=== PATIENT | female | born 1965 | race Caucasian/White ===

== ENCOUNTER → 2019-06-14 10:32 | Outpatient (CLI) | payer MEDICAID, SELFPAY ==
[2019-05-29 10:48] VITALS: BMI 30.7
--- NOTE | 2019-06-14 10:42 | RAD_ITS ---
STUDY: X-RAY - LEFT SHOULDER REASON FOR EXAM: Female, 54 years old. Pain and stiffness TECHNIQUE: 4 view(s) of the shoulder. COMPARISON: None. FINDINGS: Normal glenohumeral articulation. Normal acromioclavicular joint. Normal acromion. Normal humeral head and visualized proximal humerus. The soft tissue structures are unremarkable. Normal visualized pulmonary apex. RAD/Shoulder min 2 Views IMPRESSION: Normal x-ray examination of the shoulder. Electronically Signed: Jaime Kirby MD at 11:49 EDT , Service support ,
--- NOTE | 2019-06-14 10:43 | RAD_ITS ---
STUDY: X-RAY - LUMBAR SPINE REASON FOR EXAM: Female, 54 years old. Pain TECHNIQUE: 5 view(s) of the lumbar spine were obtained. COMPARISON: None FINDINGS: Normal lumbar lordosis. There is a mild levoscoliosis of the lumbar spine. There is a normal alignment of the vertebrae. Normal vertebral bodies and endplates. Normal disc space heights. The soft tissue structures are unremarkable. RAD/L/S Spine Min 4 Views IMPRESSION: No acute findings, mild levoscoliosis Electronically Signed: Jaime Kirby MD at 11:39 EDT , Service support ,
--- NOTE | 2019-06-14 10:43 | RAD_ITS ---
STUDY: X-RAY - CERVICAL SPINE REASON FOR EXAM: Female, 54 years old. Neck pain and headache TECHNIQUE: 5 view(s) of the cervical spine were obtained. COMPARISON: None FINDINGS: Normal anterior atlantoaxial articulation. Normal odontoid process. Normal cervical lordosis. Normal vertebral bodies and endplates. There is multi-level degenerative disc disease with multilevel disc space narrowing. There is multi-level osseous foraminal stenosis. The soft tissue structures are unremarkable. RAD/Cerv Spine 4 or 5 Views IMPRESSION: Multilevel degenerative changes, no acute findings Electronically Signed: Jaime Kirby MD at 11:39 EDT , Service support ,
--- NOTE | 2019-06-14 10:43 | RAD_ITS ---
STUDY: X-RAY - THORACIC SPINE REASON FOR EXAM: Female, 54 years old. Mid back pain TECHNIQUE: 4 view(s) of the thoracic spine were obtained. COMPARISON: None. FINDINGS: Normal kyphosis of the thoracic spine. There is no substantial scoliosis. Normal thoracic vertebrae and endplates. Mild disc space narrowing. The soft tissue structures are unremarkable. RAD/Thoracic Spine 3 Views IMPRESSION: Mild degenerative changes, no acute findings Electronically Signed: Jaime Kirby MD at 11:49 EDT , Service support ,
--- NOTE | 2019-06-14 10:50 | RAD_ITS ---
STUDY: X-RAY - RIGHT SHOULDER REASON FOR EXAM: Female, 54 years old. Pain, stiffness TECHNIQUE: 4 view(s) of the shoulder. COMPARISON: None. FINDINGS: Normal glenohumeral articulation. Normal acromioclavicular joint. Normal acromion. Normal humeral head and visualized proximal humerus. Soft tissue calcifications noted posterior to the proximal humerus, likely sequela from previous trauma Normal visualized pulmonary apex. RAD/Shoulder min 2 Views IMPRESSION: Normal x-ray examination of the shoulder. Electronically Signed: Jaime Kirby MD at 11:51 EDT , Service support ,
== END ==
PROVIDERS: Family Provider Internal Medicine; PCP Internal Medicine; Referring Provider Anesthesiology; Visit Provider Anesthesiology
DX: M54.2 Cervicalgia (principal); M54.5 Low back pain; M25.511 Pain in right shoulder; M25.512 Pain in left shoulder
CPT/HCPCS: 72050; 72072; 72110; 73030

== ENCOUNTER → 2019-06-28 13:50 | Outpatient (CLI) | payer MEDICAID, SELFPAY ==
[2019-05-29 10:48] VITALS: BMI 30.7
--- NOTE | 2019-06-28 13:51 | CT_ITS ---
STUDY: LOW DOSE CT LUNG CANCER SCREENING REASON FOR EXAM: Female, 54 years old. Lung cancer screening, smokes 1 1/2 pack per day x30 years RADIATION DOSAGE (If Supplied By Facility): CTDIvol = ( 3.02 ) mGy, DLP = ( 101.18 ) mGycm TECHNIQUE: No contrast was administered. Low dose technique was utilized (average mAS-38 and kVp 120). 1.25 mm axial source images with a slice interval of 1.25-mm were reconstructed in lung windows. 2.5 mm axial source images with a slice interval of 2.5-mm were reconstructed in lung windows. 5.0 mm axial source images with a slice interval of 5.0-mm were reconstructed in soft tissue windows. Nodule measured using lung windows on PACS and/or independent workstation with automated measurement of minimum and maximum diameter. Nodule measurement reported as average diameter rounded to the nearest whole number. Growth is defined as an increase ins size of greater than 1.5 mm. COMPARISON: None. NODULES: Total lung nodules (excluding granulomas): 0 Emphysema: Not present Endobronchial lesion: None Aorta: Normal Coronary arteries: Unremarkable Heart: Normal size Pulmonary artery: Unremarkable Mediastinal nodes: No suspicious lymph nodes Other chest and abdominal findings: Scattered patchy opacifications in the right middle lobe suggests pneumonitis CT/Low Dose CT Lung Screening IMPRESSION: Lung-RADS category 2 - Continue annual screening with LDCT in 12 months. IMPORTANT NOTES FOR USE: ACR Lung-RADS Version 1.0 Assessment Categories Release Date: March 18, 2014 Category: Coded 0-4 bases on nodule(s) with highest degree of suspicion. Negative screen is defined as categories 1 and 2; a positive screen is defined as categories 3 and 4. Category 3 and 4A nodules that are unchanged on interval CT should be coded as category 2, and individuals returned to screening in 12 months. Category 4X: Category 3 or 4 nodules with additional imaging findings that increase the suspicion of lung cancer, such as spiculation, GGN that doubles in size in 1 year, enlarged lymph notes, etc. Category Modifiers: S (significant finding unrelated to lung cancer) and C (prior history of treated lung cancer) may be added to the 0-4 Lung-RADS Electronically Signed: Jaime Kirby MD at 14:15 EDT , Service support ,
== END ==
PROVIDERS: Family Provider Internal Medicine; PCP Internal Medicine; Referring Provider Internal Medicine; Visit Provider Internal Medicine
DX: F17.210 Nicotine dependence, cigarettes, uncomplicated (principal)
CPT/HCPCS: G0297

== ENCOUNTER → 2019-08-31 11:13 | Outpatient (CLI) | payer MEDICAID, SELFPAY ==
[2019-08-31 10:36] VITALS: BMI 31.6
[2019-08-31 12:42] LABS: Absolute Lymphocyte Count 2.34 X10^3/uL (0.83-4.51); Absolute Neutrophil Count 6.4 X10^3/uL (2.0-7.7); Basophil# 0.05 X10^3/uL; Basophil% 0.5 % (0-1); Eosinophil# 0.05 X10^3/uL; Eosinophils% 0.5 % (0-5); Hematocrit 44.2 % (37-47); Hemoglobin 14.1 g/dL (12.0-15.0); Lymphocyte # 2.34 X10^3/ul (4.0); Lymphocyte % 24.6 % (19-41); Mean Corp Hgb Conc 31.9 g/dL (32-36); Mean Corpuscular Hgb 29.9 pg (27.0-32.0); Mean Corpuscular Volume 93.8 fL (81-99); Mean Platelet Vol. 10.9 fl (6.2-12.0); Monocyte# 0.64 X10^3/uL; Monocyte% 6.7 % (0-10); NRBC Flagged by Analyzer 0 % (0-5); Neutrophil # 6.41 X10^3/uL (2.7-7.7); Neutrophil % 67.4 % (47-70); Platelet Count 184 K/mm3 (150-450); RBC Distribution Width CV 12.9 % (11.6-14.6); RBC Distribution Width SD 44.1 fl (35.1-43.9); Red Blood Count 4.71 M/mm3 (4.2-5.4); White Blood Count 9.5 K/mm3 (4.4-11.0)
[2019-08-31 13:06] LABS: ALB/GLOB Ratio 1.1 RATIO (0.9-2.4); AST(SGOT) 15 U/L (15-37); Alanine Aminotransfer ALT/SGPT 34 U/L (13-56); Albumin, Serum 3.9 g/dL (3.2-5.0); Alkaline Phosphatase 91 U/L (45-117); Anion Gap 7 (5-15); BUN 20 mg/dL (7-18); BUN/Creat Ratio 27.2 RATIO (10-20); Calcium,Total 9.2 mg/dL (8.5-10.1); Chloride 109 mmol/L (98-107); Cholesterol 155 mg/dL (200); Creatinine, Serum 0.74 mg/dL (0.55-1.02); EST Glomerular Filtration Rate 87 mL/min (>60); Est Glom Filt Rate - Afr Amer 105 mL/min (>60); Globulin 3.4 g/dL (2.2-4.2); Glucose 90 mg/dL (74-106); High Density Lipoprotein 53 mg/dL; Potassium 4.2 mmol/L (3.5-5.1); Protein, Total 7.3 g/dL (6.4-8.2); Sodium Level 142 mmol/L (136-145); Triglycerides 124 mg/dL; Very Low Density Lipoprotein 25 mg/dL (5-40)
== END ==
PROVIDERS: Family Provider Internal Medicine; PCP Internal Medicine; Visit Provider Internal Medicine
DX: E78.5 Hyperlipidemia, unspecified (principal); F32.9 Major depressive disorder, single episode, unspecified
CPT/HCPCS: 36415; 80053; 80061; 85025

== ENCOUNTER → 2020-01-17 13:47 | Outpatient (CLI) | payer MEDICAID, SELFPAY ==
[2020-01-17 13:35] VITALS: BMI 31.6
[2020-01-17 15:03] LABS: T4 Free Direct 0.84 ng/dL (0.76-1.46); Thyroid Stim Hormone (TSH) 0.01 uIU/mL (0.358-3.74)
[2020-01-23 16:36] LABS: HPV APTIMA, High Risk Negative (Negative)
== END ==
PROVIDERS: PCP Internal Medicine; Referring Provider Internal Medicine; Visit Provider Internal Medicine
DX: Z12.4 Encounter for screening for malignant neoplasm of cervix (principal); Z13.29 Encounter for screening for other suspected endocrine disorder
CPT/HCPCS: 36415; 84439; 84443; 87624; 88175; G0145

== ENCOUNTER → 2020-05-06 13:16 | Outpatient (CLI) | payer MEDICAID, SELFPAY ==
[2020-05-06 12:55] VITALS: BMI 30.7
[2020-05-06 15:21] LABS: ALB/GLOB Ratio 1.1 RATIO (0.9-2.4); AST(SGOT) 17 U/L (15-37); Alanine Aminotransfer ALT/SGPT 28 U/L (13-56); Albumin, Serum 3.8 g/dL (3.2-5.0); Alkaline Phosphatase 89 U/L (45-117); Anion Gap 6 (5-15); BUN 16 mg/dL (7-18); BUN/Creat Ratio 21.1 RATIO (10-20); Chloride 105 mmol/L (98-107); Creatinine, Serum 0.76 mg/dL (0.55-1.02); EST Glomerular Filtration Rate 84 mL/min (>60); Est Glom Filt Rate - Afr Amer 101 mL/min (>60); Globulin 3.5 g/dL (2.2-4.2); Glucose 92 mg/dL (74-106); Potassium 4.2 mmol/L (3.5-5.1); Protein, Total 7.3 g/dL (6.4-8.2); Sodium Level 142 mmol/L (136-145); T4 Free Direct 0.75 ng/dL (0.76-1.46); Thyroid Stim Hormone (TSH) 0.06 uIU/mL (0.358-3.74)
[2020-05-13 15:55] LABS: T3 Reverse 11.5 ng/dL (9.2-24.1)
== END ==
PROVIDERS: PCP Internal Medicine; Referring Provider Internal Medicine; Visit Provider Internal Medicine
DX: I10 Essential (primary) hypertension (principal); E05.90 Thyrotoxicosis, unspecified without thyrotoxic crisis or storm
CPT/HCPCS: 36415; 80053; 84439; 84443; 84482

== ENCOUNTER → 2020-07-03 15:02 | Outpatient (CLI) | payer MEDICAID, SELFPAY ==
[2020-07-03 14:44] VITALS: BMI 30.9
[2020-07-03 17:10] LABS: ALB/GLOB Ratio 1.2 RATIO (0.9-2.4); AST(SGOT) 15 U/L (15-37); Alanine Aminotransfer ALT/SGPT 32 U/L (13-56); Albumin, Serum 4.1 g/dL (3.2-5.0); Alkaline Phosphatase 95 U/L (45-117); Anion Gap 6 (5-15); BUN 17 mg/dL (7-18); BUN/Creat Ratio 21.6 RATIO (10-20); Calcium,Total 9.3 mg/dL (8.5-10.1); Chloride 107 mmol/L (98-107); Cholesterol 197 mg/dL (200); Creatinine, Serum 0.79 mg/dL (0.55-1.02); EST Glomerular Filtration Rate 80 mL/min (>60); Est Glom Filt Rate - Afr Amer 97 mL/min (>60); Globulin 3.3 g/dL (2.2-4.2); Glucose 104 mg/dL (74-106); High Density Lipoprotein 53 mg/dL; Potassium 4.1 mmol/L (3.5-5.1); Protein, Total 7.4 g/dL (6.4-8.2); Sodium Level 142 mmol/L (136-145); Triglycerides 163 mg/dL; Very Low Density Lipoprotein 33 mg/dL (5-40)
[2020-07-03 17:14] LABS: Free T3 3.3 pg/mL (2.18-3.98); T4 Free Direct 0.92 ng/dL (0.76-1.46); Thyroid Stim Hormone (TSH) 0.11 uIU/mL (0.358-3.74)
== END ==
PROVIDERS: PCP Internal Medicine; Referring Provider Internal Medicine Endocrinology, Diabetes & Metabolism; Visit Provider Internal Medicine Endocrinology, Diabetes & Metabolism
DX: E05.90 Thyrotoxicosis, unspecified without thyrotoxic crisis or storm (principal); I10 Essential (primary) hypertension; E78.5 Hyperlipidemia, unspecified
CPT/HCPCS: 36415; 80053; 80061; 84439; 84443; 84481

== ENCOUNTER 2021-03-24 14:02 | Emergency (ER) | payer MEDICAID, SELFPAY ==
[2020-09-09 11:01] VITALS: BMI 32.3
[2021-03-24] VITALS (10 sets, daily range): BP systolic 115–188; BP diastolic 74–118; PULSE 12–133; RESP 12–79; TEMP 35.6; O2SAT 92–98; BMI 29.9
--- NOTE | 2021-03-24 14:34 | EX.ED.VIS.PS ---
HPI HPI - Psych History of Present Illness Chief Complaint: Mental Health Informant: patient Onset/Context/Timing Onset: Days Context: Gradual Onset Timing: Continuous Current Severity: Mild Maximum Severity: Moderate Associated Symptoms Associated Symptoms - Psych: Positive for Depressed and Hostile Narrative Narrative: 55-year-old female with known underlying psychiatric illness. Lives at home with her mom. My understanding per nursing and the paramedics is that she has been increasingly more agitated recently. Mom believes her underlying psychiatric illness is flared up. Mom states that she cannot deal with that at home any longer. Patient is a limited informant. Is verbally abusive to myself and staff. Is cursing. Prior similar symptoms: Yes PFSH PFS Medical History (Updated 03/24/21 @ 15:[address] Jeffy Duong MD) Back problem Cerebral palsy Depression High cholesterol Scoliosis Stroke Thyroid disease Vitamin deficiency Home Medications rollator #1 ea 08/31/19 [Rx Last Taken Unknown] blood pressure test kit-wrist #1 ea 07/02/20 [Rx Last Taken Unknown] propranolol 40 mg tablet 40 mg PO BID #180 tab 09/12/20 [Rx Last Taken Unknown] duloxetine 60 mg capsule,delayed release See Rx Instructions .ROUTE .COMPLEX #90 cap 12/16/20 [Rx Last Taken Unknown] multivitamin See Rx Instructions .ROUTE .COMPLEX #90 tab 12/16/20 [Rx Last Taken Unknown] simvastatin 40 mg tablet See Rx Instructions .ROUTE .COMPLEX #90 tab 12/16/20 [Rx Last Taken Unknown] duloxetine 30 mg capsule,delayed release 30 mg PO DAILY #90 cap 01/09/21 [Rx Last Taken Unknown] methimazole 5 mg tablet 2.5 mg PO DAILY #15 tab 01/15/21 [Rx Last Taken Unknown] cholecalciferol (vitamin D3) 25 mcg (1,000 unit) tablet 1,000 unit PO DAILY #90 tab 03/06/21 [Rx Last Taken Unknown] cyclobenzaprine 10 mg tablet See Rx Instructions .ROUTE .COMPLEX #90 tab 03/06/21 [Rx Last Taken Unknown] Allergy/AdvReac Type Severity Reaction Status Date / Time sulfamethoxazole Allergy Unknown Unknown Verified 09/09/20 11:05 [From Bactrim] trimethoprim [From Bactrim] Allergy Unknown Unknown Verified 09/09/20 11:05 Family History Other Arthritis CVA (cerebral vascular accident) Cancer Depression Heart disease High cholesterol Ovarian cancer Surgical History No history of previous surgery Social History Smoking Status: Current every day smoker tobacco type: cigarettes Tobacco: How many years used: 30 alcohol intake: current alcohol intake frequency: holidays/special occasions only substance use type: does not use caffeine: Yes what type of physical activity do you participate in: none seatbelt use: always do you feel safe at home: Yes additional social history: Single ROS ROS ED Review of Systems ROS Unobtainable: Denies due to encephalopathy Constitutional Constitutional ED: Denies fever(s) Eyes Eyes: Denies change in vision ENT ENT ED: Denies sore throat Cardiovascular Cardiovascular: Denies chest pain Respiratory/Chest Respiratory/Chest: Denies dyspnea Gastrointestinal Gastrointestinal: Denies abdominal pain, nausea or vomiting Genitourinary Genitourinary ED: Denies dysuria or hematuria Musculoskeletal Musculoskeletal: Denies myalgias Integumentary Denies rash Neurologic Neurologic: Denies headache(s) Psychiatric Psychiatric: Reports depression Endocrine Endocrinology: Denies polyuria Hematologic/Lymphatic Hematologic/Lymphatic: Denies easy bruising Allergic/Immunologic Allergic/Immunologic ED: Denies urticaria EXAM Physical Exam Narrative Exam Narrative: Middle-aged female vital signs are stable. She is afebrile. She is currently in four-point restraints on the bed. She is verbally abusive to staff. HEENT exam unremarkable. No signs of trauma. Neck nontender. Lungs clear to auscultation bilaterally. Heart regular rhythm rate about 110 no murmur. Abdomen soft nontender. Normal bowel sounds no peritoneal signs. Moving all 4 extremities but limited due to her being in four-point restraints. Neurologically she is awake. She is alert. She is uncooperative and really will not answer questions. Const Vital Signs: 03/24/21 14:04 03/24/21 15:24 Temperature 96.0 F L Temperature Source Temporal Pulse Rate 133 H 101 H Respiratory Rate 20 H 12 Blood Pressure 175/118 H 156/101 H Blood Pressure Mean 137 119 Pulse Ox 97 98 Oxygen Delivery Method Room Air Room Air Positive well nourished, well developed and unkempt General Appearance ED: unkempt and well developed HEENT normocephalic and atraumatic Eyes PERRL and EOMs intact bilaterally Neck no lymphadenopathy, supple and no JVD General: Negative for tenderness Resp normal respiratory effort and clear to auscultation bilaterally Auscultation: Negative for rales, rhonchi or wheezes Cardio no murmurs Rate: tachycardic Rhythm: regular rhythm GI non-tender, non-distended and no masses Inspection: abdominal distention Auscultation: normoactive bowel sounds Palpation: soft and tender Back/Spine no CVA tenderness General Back: Negative for CVA tenderness Extremity normal to inspection General Extremety ED: Yes other findings; Negative for edema or tenderness General Extremity: other findings; Negative for edema Neuro Sensorium / Orientation: alert Motor Exam: strength 5/5 throughout Psych Appearance: unkempt Attitude: uncooperative, belligerent and agitated Activity / Motor Behavior: appropriate eye contact and restless Speech: normal speech Skin no rashes or lesions noted General Skin Exam: Negative for jaundice Lesions: no lesions Rashes: no rashes MDM MDM MDM Narrative Medical decision making narrative: 55-year-old female with known psychiatric illness. She is agitated and acting psychotic. She is not cooperative. She is currently restrained. Trisha had treated her with Haldol and other medications. She undergo a psychiatric evaluation. She will be medically cleared. Need admission to a psychiatric facility. Lab Data Labs: Laboratory Results - last 24 hr 03/24/21 03/24/21 03/24/21 14:40 14:40 14:40 WBC 11.4 H RBC 5.24 Hgb 16.2 H Hct 50.8 H MCV 96.9 MCH 30.9 MCHC 31.9 L RDW Std Deviation 48.3 H RDW Coeff of Mary Ann 13.4 Plt Count TNP MPV 11.7 Immature Gran % (Auto) 0.400 Neut % (Auto) 69.6 Lymph % (Auto) 22.1 [place] % (Auto) 6.6 Eos % (Auto) 0.8 Baso % (Auto) 0.5 Absolute Neuts (auto) 7.9 H Absolute Lymphs (auto) 2.52 Nucleated RBC % 0 Platelet Estimate ADEQUATE Sodium 141 Potassium 3.8 Chloride 108 H Carbon Dioxide 22.0 Anion Gap 11 BUN 21 H Creatinine 1.23 H Estim Creat Clear Calc 49.07 Est GFR (MDRD) Af Amer 58 L Est GFR (MDRD) Non-Af 48 L BUN/Creatinine Ratio 17.1 Glucose 140 H Calcium 9.7 Urine Opiates Screen Urine Methadone Screen Ur Barbiturates Screen Ur Phencyclidine Scrn Ur Amphetamines Screen U Methamphetamin-MDMA U Benzodiazepines Scrn Urine Cocaine Screen U Cannabinoids Screen Ur Drug Screen Comment Ethyl Alcohol 8.0 03/24/21 14:50 WBC RBC Hgb Hct MCV MCH MCHC RDW Std Deviation RDW Coeff of Mary Ann Plt Count MPV Immature Gran % (Auto) Neut % (Auto) Lymph % (Auto) [place] % (Auto) Eos % (Auto) Baso % (Auto) Absolute Neuts (auto) Absolute Lymphs (auto) Nucleated RBC % Platelet Estimate Sodium Potassium Chloride Carbon Dioxide Anion Gap BUN Creatinine Estim Creat Clear Calc Est GFR (MDRD) Af Amer Est GFR (MDRD) Non-Af BUN/Creatinine Ratio Glucose Calcium Urine Opiates Screen NEGATIVE Urine Methadone Screen NEGATIVE Ur Barbiturates Screen NEGATIVE Ur Phencyclidine Scrn NEGATIVE Ur Amphetamines Screen NEGATIVE U Methamphetamin-MDMA NEGATIVE U Benzodiazepines Scrn POSITIVE H Urine Cocaine Screen NEGATIVE U Cannabinoids Screen POSITIVE H Ur Drug Screen Comment Ethyl Alcohol Labs are basically unremarkable. She does have positive benzodiazepines and cannabis on her tox screen. Alcohol is negative. Repeat exam patient is doing well at 3:28 PM. She is currently medically cleared for psychiatric admission. Discharge Plan Triage Chief Complaint: Mental Health ED Provider: Jeffy Duong Dx/Rx/DC Orders Clinical Impression: Acute psychosis Prescriptions: No Action (DME) rollator Qty: 1 RF: 0 (DME) blood pressure test kit-wrist [Blood Pressure Unit-Wrist] Kit See Rx Instructions .ROUTE .MEDSUPPLY Qty: 1 RF: 0 propranolol 40 mg tablet 40 mg PO BID Qty: 180 RF: 3 multivitamin [Daily-Radha] Tablet See Rx Instructions .ROUTE .COMPLEX Qty: 90 RF: 1 simvastatin 40 mg tablet See Rx Instructions .ROUTE .COMPLEX Qty: 90 RF: 1 duloxetine 60 mg capsule,delayed release(DR/EC) See Rx Instructions .ROUTE .COMPLEX Qty: 90 RF: 1 duloxetine 30 mg capsule,delayed release(DR/EC) 30 mg PO DAILY Qty: 90 RF: 1 methimazole 5 mg tablet 2.5 mg PO DAILY Qty: 15 RF: 4 cholecalciferol (vitamin D3) 25 mcg (1,000 unit) tablet 1,000 unit PO DAILY Qty: 90 RF: 3 cyclobenzaprine 10 mg tablet See Rx Instructions .ROUTE .COMPLEX Qty: 90 RF: 1 Primary Care Provider: Drew Villar Referrals: Drew Villar MD [Primary Care Provider] - Disposition Disposition: Psychiatric Hospital or Unit
[2021-03-24 14:51] LABS: Absolute Lymphocyte Count 2.52 X10^3/uL (0.83-4.51); Absolute Neutrophil Count 7.9 X10^3/uL (2.0-7.7); Basophil# 0.06 X10^3/uL; Basophil% 0.5 % (0-1); Eosinophil# 0.09 X10^3/uL; Eosinophils% 0.8 % (0-5); Hematocrit 50.8 % (37-47); Hemoglobin 16.2 g/dL (12.0-15.0); Lymphocyte # 2.52 X10^3/ul (0.83-4.51); Lymphocyte % 22.1 % (19-41); Mean Corp Hgb Conc 31.9 g/dL (32-36); Mean Corpuscular Hgb 30.9 pg (27.0-32.0); Mean Corpuscular Volume 96.9 fL (81-99); Mean Platelet Vol. 11.7 fl (6.2-12.0); Monocyte# 0.75 X10^3/uL; Monocyte% 6.6 % (0-10); NRBC Flagged by Analyzer 0 % (0-5); Neutrophil # 7.93 X10^3/uL (2.7-7.7); Neutrophil % 69.6 % (47-70); POSITIVE COUNT YES; RBC Distribution Width CV 13.4 % (11.6-14.6); RBC Distribution Width SD 48.3 fl (35.1-43.9); Red Blood Count 5.24 M/mm3 (4.2-5.4); White Blood Count 11.4 K/mm3 (4.4-11.0)
[2021-03-24 14:53] LABS: Differential Indicated SCAN CRITERIA MET
[2021-03-24 15:08] LABS: Anion Gap 11 (5-15); BUN 21 mg/dL (7-18); BUN/Creat Ratio 17.1 RATIO (10-20); Calcium,Total 9.7 mg/dL (8.5-10.1); Chloride 108 mmol/L (98-107); Creatinine, Serum 1.23 mg/dL (0.55-1.02); EST Glomerular Filtration Rate 48 mL/min (>60); Est Glom Filt Rate - Afr Amer 58 mL/min (>60); Estimated Creatinine Clearance 49.07 ml/min; Glucose 140 mg/dL (74-106); Potassium 3.8 mmol/L (3.5-5.1); Sodium Level 141 mmol/L (136-145)
[2021-03-24 15:08] LABS: Amphetamine Urine VISTA NEGATIVE (<1000 ng/mL); Barbiturate Urine VISTA NEGATIVE (< 200 ng/mL); Benzodiazepine Urine VISTA POSITIVE (< 200 ng/mL); Cocaine Urine VISTA NEGATIVE (< 300 ng/mL); Ecstacy Urine VISTA NEGATIVE (< 500 ng/mL); Methadone Urine VISTA NEGATIVE (< 300 ng/mL); PCP Urine VISTA NEGATIVE (< 25 ng/mL); THC Urine VISTA POSITIVE (< 50 ng/mL); Vista UDS pH Range 6
[2021-03-24 15:13] LABS: Platelet Estimate ADEQUATE (ADEQ)
--- NOTE | 2021-03-24 15:47 | NURSING ---
FAXED CHART TO CRISIS
--- NOTE | 2021-03-24 16:31 | ED.RN ---
this RN was told by pts mother that pt has recently gone through a few changes, states pt kicked her boyfriend out and pt also has not been acting herself. mother states she is never happy with what she does with her but pt can make her own decisions because she is 55. mother states she doesn't know what medications the pt has been taking or not taking. mother states she was trying to get her placed at an assisted living facility but nothing has started with that.
--- NOTE | 2021-03-24 16:37 | ED.RN ---
PT removed R arm and R leg from restraints
--- NOTE | 2021-03-24 16:39 | NURSING ---
WANG, CRISIS, HERE. SHE LEFT TO ARRANGE PLACEMENT
--- NOTE | 2021-03-24 16:50 | ED.RN ---
pt is fully out of restraints. pt sleeping in bed currently.
--- NOTE | 2021-03-24 17:28 | CM.ED ---
SOCIAL WORK Updated by nursing, patient has been out of restraints since 16:50. Call to Crisis to update, spoke with Ana Luisa. Ana Luisa working on placement at this time and will call with updates. Plan: Crisis working on placement Andrea Christine, CABINET MOUNTER,SHOT LIGHTER
--- NOTE | 2021-03-24 19:10 | ED.RN ---
pt currently sleeping in bed at this time.
[2021-03-25] VITALS (13 sets, daily range): BP systolic 127–140; BP diastolic 70–87; PULSE 70–85; RESP 12–20; O2SAT 95–98
--- NOTE | 2021-03-25 06:42 | ED.RN ---
PENDING [facility] REFERRAL.
--- NOTE | 2021-03-25 10:11 | CM.ED ---
SOCIAL WORK Call to Crisis to check on status of referral. Spoke with Sana, waiting on [place] and [place]. Will attempt [place] if declined. Andrea Christine, JUNIOR MEDIA BUYER, GENERAL CAR SUPERVISOR YARD
--- NOTE | 2021-03-25 14:14 | CM.ED ---
SOCIAL WORK Received call from Ana Luisa with Crisis. Per Ana Luisa, patient on waitlist at [place]. Ana Luisa inquiring if physician would be open to completing physician to physician with [facility] ([phone], pager [phone]). Staff lay. Andrea Christine, LMFT, WOOD AND WOOD PRODUCTS LABOURER
--- NOTE | 2021-03-25 14:35 | NURSING ---
[phone]
--- NOTE | 2021-03-25 15:15 | ED.RN ---
PT DECLINES LUNCH, DID DRINK CHOCOLATE MILK. PT ALSO INFORMED MOTHER CALLED IN, PT STATES I DON'T HAVE A MOTHER, DECLINES MOTHER VISITING.
--- NOTE | 2021-03-25 15:57 | NURSING ---
[id number] PAGED [facility] [phone]
--- NOTE | 2021-03-25 17:32 | NURSING ---
CALLED [facility], TALKED TO PHILIP. HE TOOK INFO. DR MORAES WILL CALL BACK
--- NOTE | 2021-03-25 17:45 | NURSING ---
[facility], FOR DR SOLOMON
--- NOTE | 2021-03-25 20:11 | CM.ED ---
SOCIAL WORK [facility] reports no beds. Crisis updated and states still awaiting possible placement at [place]. Will look into referral to [facility]. Andrea Christine, CRIME SCENE ANALYST, DISTRIBUTION OPERATIONS MANAGER
--- NOTE | 2021-03-25 20:23 | EKG12_ITS ---
Test Reason : Blood Pressure : / mmHG Vent. Rate : 088 BPM Atrial Rate : 088 BPM P-R Int : 140 ms QRS Dur : 108 ms QT Int : 398 ms P-R-T Axes : 073 -13 012 degrees QTc Int : 481 ms Normal sinus rhythm Septal infarct , age undetermined Abnormal ECG Confirmed by JOYCE ALEXANDER, DONNA ([id number]), acquisition editor JAGJIT LEONARDO ([id number]) on 03/30/2021 12:35:15 PM Referred By: COLIN Confirmed By:DONNA COOK MD
[2021-03-25 21:10] LABS: AST(SGOT) 47 U/L (15-37); Alanine Aminotransfer ALT/SGPT 32 U/L (13-56); Alkaline Phosphatase 147 U/L (45-117); Bilirubin, Direct 0.14 mg/dL (0.00-0.30); Globulin 4.1 g/dL (2.2-4.2); Protein, Total 8.1 g/dL (6.4-8.2)
[2021-03-25 21:48] LABS: Thyroid Stim Hormone (TSH) 0.32 uIU/mL (0.358-3.74)
[2021-03-26] VITALS (11 sets, daily range): BP systolic 169–174; BP diastolic 90–111; PULSE 85–89; RESP 14–18; O2SAT 97–98
--- NOTE | 2021-03-26 00:55 | ED.RN ---
THIS NURSE SPOKE WITH PT'S SISTER ON PHONE AND SISTER WILL BRING IN PT'S LEG BRACE AND WALKER TOMORROW. THIS NURSE BRUSHED PT'S UPPER DENTURES AND LOWER TEETH FOR PT. PT ABLE TO REPOSITIONS SELF IN BED.
--- NOTE | 2021-03-26 07:37 | ED.RN ---
Pt states you people have not fed me for 4 days Breakfast brought in for pt, pt sits up and states I'm not eating this crap, it's disgusting.
--- NOTE | 2021-03-26 10:18 | CM.ED ---
SOCIAL WORK Call to [facility] to check on status. Per Ana Luisa, referrals still pending for placement. Ana Luisa to call [facility] [place] to check on status. Andrea Christine, CERTIFIED MARINE MECHANIC, LOGISTICS SUPPLY OFFICER
--- NOTE | 2021-03-26 10:31 | CM.ED ---
SOCIAL WORK Received call from Ana Luisa with Crisis. Per Ana Luisa, patient has been accepted to [facility] hoping to have bed for patient today. Staff lay. Andrea Christine, SPRINKLER INSTALLER, SENIOR DATA WAREHOUSE ARCHITECT
--- NOTE | 2021-03-26 14:06 | ED.RN ---
report given trisha, nurse
--- NOTE | 2021-03-26 14:54 | ED.RN ---
transferring squad in EMS
== END 2021-03-26 15:02 ==
PROVIDERS: Emergency Medicine; Emergency Provider Emergency Medicine; PCP Internal Medicine
DX: F23 Brief psychotic disorder (principal); F32.9 Major depressive disorder, single episode, unspecified; E78.00 Pure hypercholesterolemia, unspecified; G80.9 Cerebral palsy, unspecified; M19.90 Unspecified osteoarthritis, unspecified site; F17.210 Nicotine dependence, cigarettes, uncomplicated; Z79.899 Other long term (current) drug therapy; Z86.73 Personal history of transient ischemic attack (TIA), and cerebral infarction without residual deficits
CPT/HCPCS: 80048; 80076; 80307; 82077; 84443; 85025; 87426; 93005; 99285; P9612

== ENCOUNTER → 2021-06-01 09:53 | Outpatient (CLI) | payer MEDICAID, SELFPAY ==
[2021-06-01 09:16] VITALS: BMI 29.9
[2021-06-01 12:51] LABS: Absolute Lymphocyte Count 3.66 X10^3/uL (0.83-4.51); Absolute Neutrophil Count 9.1 X10^3/uL (2.0-7.7); Basophil# 0.07 X10^3/uL; Basophil% 0.5 % (0-1); Eosinophil# 0.09 X10^3/uL; Eosinophils% 0.6 % (0-5); Hematocrit 46.6 % (37-47); Hemoglobin 14.9 g/dL (12.0-15.0); Lymphocyte # 3.66 X10^3/ul (0.83-4.51); Mean Corpuscular Volume 96.9 fL (81-99); Mean Platelet Vol. 11.3 fl (6.2-12.0); Monocyte# 1.06 X10^3/uL; Monocyte% 7.5 % (0-10); NRBC Flagged by Analyzer 0 % (0-5); Neutrophil # 9.12 X10^3/uL (2.7-7.7); Platelet Count 239 K/mm3 (150-450); RBC Distribution Width CV 13.6 % (11.6-14.6); RBC Distribution Width SD 49.1 fl (35.1-43.9); Red Blood Count 4.81 M/mm3 (4.2-5.4); White Blood Count 14.1 K/mm3 (4.4-11.0)
[2021-06-01 13:36] LABS: AST(SGOT) 16 U/L (15-37); Alanine Aminotransfer ALT/SGPT 30 U/L (13-56); Alkaline Phosphatase 86 U/L (45-117); Anion Gap 8 (5-15); BUN 18 mg/dL (7-18); BUN/Creat Ratio 20.2 RATIO (10-20); Calcium,Total 9.3 mg/dL (8.5-10.1); Chloride 106 mmol/L (98-107); Creatinine, Serum 0.89 mg/dL (0.55-1.02); EST Glomerular Filtration Rate 69 mL/min (>60); Est Glom Filt Rate - Afr Amer 84 mL/min (>60); Globulin 3.9 g/dL (2.2-4.2); Glucose 98 mg/dL (74-106); Potassium 4.1 mmol/L (3.5-5.1); Protein, Total 7.9 g/dL (6.4-8.2); Sodium Level 139 mmol/L (136-145); T4 Free Direct 0.76 ng/dL (0.76-1.46); Thyroid Stim Hormone (TSH) 1.42 uIU/mL (0.358-3.74)
[2021-06-04 10:57] LABS: T3 Reverse 16.6 ng/dL (9.2-24.1)
== END ==
PROVIDERS: PCP Internal Medicine; Referring Provider Internal Medicine; Visit Provider Internal Medicine
DX: I10 Essential (primary) hypertension (principal); E05.90 Thyrotoxicosis, unspecified without thyrotoxic crisis or storm
CPT/HCPCS: 36415; 80053; 84439; 84443; 84482; 85025

== ENCOUNTER → 2021-09-08 | Outpatient (CLI) | payer MEDICAID, SELFPAY ==
[2021-09-08 15:40] LABS: Amphetamine Urine VISTA NEGATIVE (<1000 ng/mL); Barbiturate Urine VISTA NEGATIVE (< 200 ng/mL); Benzodiazepine Urine VISTA NEGATIVE (< 200 ng/mL); Cocaine Urine VISTA NEGATIVE (< 300 ng/mL); Ecstacy Urine VISTA NEGATIVE (< 500 ng/mL); Methadone Urine VISTA NEGATIVE (< 300 ng/mL); PCP Urine VISTA NEGATIVE (< 25 ng/mL); THC Urine VISTA POSITIVE (< 50 ng/mL); Vista UDS pH Range 5
== END | disposition home or self-care (01) ==
LOC: LABSPEC 14:08
PROVIDERS: PCP Internal Medicine; Referring Provider Internal Medicine; Visit Provider Internal Medicine
DX: F19.10 Other psychoactive substance abuse, uncomplicated (principal)
CPT/HCPCS: 80307

== ENCOUNTER 2022-09-03 17:30 | Emergency (ER) | payer MEDICAID, SELFPAY ==
[2022-09-03 17:31] VITALS: BP 156/89; PULSE 69; RESP 16; TEMP 36; O2SAT 98; BMI 30.4
--- NOTE | 2022-09-03 17:45 | CT_ITS ---
STUDY: CT CERVICAL SPINE WITHOUT CONTRAST REASON FOR EXAM: Female, 57 years old. neck pain RADIATION DOSAGE (If Supplied By Facility): CTDIvol = ( 31.30 ) mGy, DLP = ( 686.02 ) mGycm TECHNIQUE: High resolution transaxial imaging was performed without contrast material. Sagittal and coronal images were reconstructed. Individualized dose optimization techniques were used for this CT. COMPARISON: None FINDINGS: Normal craniovertebral junction. There are degenerative changes of the anterior atlantoaxial articulation. Normal odontoid process. Normal cervical lordosis. Normal vertebral bodies and posterior osseous elements. C2-3: Normal endplates. Normal disc height and morphology. Normal central canal and intervertebral neuroforamina. C3-4: Mild broad disc osteophyte complex and bilateral uncovertebral hypertrophy produces mild spinal stenosis and mild bilateral neural foraminal stenosis. C4-5: Mild broad disc osteophyte complex and bilateral vertebral hypertrophy produces mild spinal stenosis and mild bilateral neural foraminal stenosis. C5-6: Mild broad disc osteophyte complex and bilateral vertebral hypertrophy produces mild spinal stenosis and mild bilateral neural foraminal stenosis. C6-7: Normal endplates. Normal disc height and morphology. Normal central canal and intervertebral neuroforamina. C7-T1: Normal endplates. Normal disc height and morphology. Normal central canal and intervertebral neuroforamina. Normal visualized soft tissue structures. CT/Spine Cervical without Contras IMPRESSION: No acute fracture or subluxation. Electronically Signed: Jose Cruz Kay MD at 18:46 EDT ,
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
[2022-09-03] MEDS: Diphth,Pertuss(Acell),Tet Vac 0.5 ML Vial IM (18:24)
[2022-09-03 19:04] LABS: Absolute Lymphocyte Count 2.38 X10^3/uL (0.83-4.51); Absolute Neutrophil Count 5.9 X10^3/uL (2.0-7.7); Basophil# 0.04 X10^3/uL; Basophil% 0.4 % (0-1); Eosinophil# 0.07 X10^3/uL; Eosinophils% 0.8 % (0-5); Hematocrit 42.3 % (37-47); Hemoglobin 13.7 g/dL (12.0-15.0); Lymphocyte # 2.38 X10^3/ul (0.83-4.51); Lymphocyte % 26.3 % (19-41); Mean Corp Hgb Conc 32.4 g/dL (32-36); Mean Corpuscular Hgb 31.8 pg (27.0-32.0); Mean Corpuscular Volume 98.1 fL (81-99); Mean Platelet Vol. 11.5 fl (6.2-12.0); Monocyte% 6.6 % (0-10); NRBC Flagged by Analyzer 0 % (0-5); Neutrophil # 5.93 X10^3/uL (2.7-7.7); Neutrophil % 65.6 % (47-70); Platelet Count 176 K/mm3 (150-450); RBC Distribution Width CV 12.8 % (11.6-14.6); Red Blood Count 4.31 M/mm3 (4.2-5.4); White Blood Count 9.1 K/mm3 (4.4-11.0)
[2022-09-03 19:12] LABS: Anion Gap 5 (5-15); BUN 20 mg/dL (7-18); BUN/Creat Ratio 25.2 RATIO (10-20); Calcium,Total 9.3 mg/dL (8.5-10.1); Chloride 106 mmol/L (98-107); EST Glomerular Filtration Rate 79 mL/min (>60); Est Glom Filt Rate - Afr Amer 95 mL/min (>60); Estimated Creatinine Clearance 70.88 ml/min; Glucose 108 mg/dL (74-106); Partial Thromboplast Time 33.4 Seconds (24.1-36.2); Potassium 3.6 mmol/L (3.5-5.1); Prothrombin Time (Protime)PT. 13.1 SECONDS (11.7-14.9); Sodium Level 142 mmol/L (136-145)
== END 2022-09-03 20:50 | disposition home or self-care (01) ==
PROVIDERS: Emergency Provider Emergency Medicine; PCP Internal Medicine; Visit Provider Emergency Medicine
DX: S01.01XA Laceration without foreign body of scalp, initial encounter (principal); G80.9 Cerebral palsy, unspecified; V58.1XXA Passenger in pick-up truck or van injured in noncollision transport accident in nontraffic accident, initial encounter; Y93.89 Activity, other specified; D35.01 Benign neoplasm of right adrenal gland; E78.00 Pure hypercholesterolemia, unspecified; E07.9 Disorder of thyroid, unspecified; F10.90 Alcohol use, unspecified, uncomplicated; F17.210 Nicotine dependence, cigarettes, uncomplicated; Z79.899 Other long term (current) drug therapy; Z86.73 Personal history of transient ischemic attack (TIA), and cerebral infarction without residual deficits; Z23 Encounter for immunization
CPT/HCPCS: 12002; 70450; 71260; 72125; 74177; 80048; 85025; 85610; 85730; 90471; 90715; 99285; Q9967; A4216

== ENCOUNTER → 2022-10-25 | Outpatient (CLI) | payer MEDICAID, SELFPAY ==
[2022-10-25 16:58] LABS: Absolute Lymphocyte Count 3.43 X10^3/uL (0.83-4.51); Absolute Neutrophil Count 7.4 X10^3/uL (2.0-7.7); Basophil# 0.07 X10^3/uL; Basophil% 0.6 % (0-1); Eosinophil# 0.11 X10^3/uL; Eosinophils% 0.9 % (0-5); Hematocrit 48.8 % (37-47); Hemoglobin 15.7 g/dL (12.0-15.0); Lymphocyte # 3.43 X10^3/ul (0.83-4.51); Lymphocyte % 29.3 % (19-41); Mean Corp Hgb Conc 32.2 g/dL (32-36); Mean Corpuscular Hgb 31.3 pg (27.0-32.0); Mean Corpuscular Volume 97.2 fL (81-99); Monocyte# 0.64 X10^3/uL; Monocyte% 5.5 % (0-10); NRBC Flagged by Analyzer 0 % (0-5); Neutrophil # 7.42 X10^3/uL (2.7-7.7); Neutrophil % 63.3 % (47-70); Platelet Count 234 K/mm3 (150-450); RBC Distribution Width SD 46.3 fl (35.1-43.9); Red Blood Count 5.02 M/mm3 (4.2-5.4); White Blood Count 11.7 K/mm3 (4.4-11.0)
[2022-10-25 17:55] LABS: Vitamin D,25 Hydroxy 37.2 ng/mL
[2022-10-25 18:07] LABS: ALB/GLOB Ratio 1.1 RATIO (0.9-2.4); AST(SGOT) 16 U/L (15-37); Alanine Aminotransfer ALT/SGPT 31 U/L (13-56); Alkaline Phosphatase 88 U/L (45-117); Anion Gap 4 (5-15); BUN 14 mg/dL (7-18); BUN/Creat Ratio 19.5 RATIO (10-20); Calcium,Total 9.4 mg/dL (8.5-10.1); Chloride 108 mmol/L (98-107); Cholesterol 189 mg/dL (200); Creatinine, Serum 0.72 mg/dL (0.55-1.02); EST Glomerular Filtration Rate 88 mL/min (>60); Est Glom Filt Rate - Afr Amer 107 mL/min (>60); Free T3 2.9 pg/mL (2.18-3.98); Globulin 3.8 g/dL (2.2-4.2); Glucose 98 mg/dL (74-106); High Density Lipoprotein 57 mg/dL; Potassium 3.8 mmol/L (3.5-5.1); Protein, Total 7.8 g/dL (6.4-8.2); Sodium Level 141 mmol/L (136-145); T4 Free Direct 0.84 ng/dL (0.76-1.46); Thyroid Stim Hormone (TSH) 0.74 uIU/mL (0.358-3.74); Triglycerides 203 mg/dL; Very Low Density Lipoprotein 41 mg/dL (5-40)
== END | disposition home or self-care (01) ==
LOC: BIMLAB 15:58
PROVIDERS: PCP Internal Medicine; Referring Provider Physician Assistant; Visit Provider Physician Assistant
DX: I10 Essential (primary) hypertension (principal); E05.90 Thyrotoxicosis, unspecified without thyrotoxic crisis or storm; G89.29 Other chronic pain; E56.9 Vitamin deficiency, unspecified; E78.00 Pure hypercholesterolemia, unspecified
CPT/HCPCS: 36415; 80053; 80061; 82306; 84439; 84443; 84481; 85025

== ENCOUNTER 2023-05-09 21:22 | Emergency (ER) | payer MEDICAID, SELFPAY ==
[2023-05-09 21:24] VITALS: TEMP 37.1; BMI 36.8
[2023-05-09 21:29] VITALS: BP 150/118; PULSE 78; RESP 16; O2SAT 97
--- NOTE | 2023-05-09 22:09 | RAD_ITS ---
INDICATION: fall EXAMINATION/TECHNIQUE: X-RAY - XR Chest 2 Views COMPARISON: None. FINDINGS: LINES/DEVICES: None. LUNGS: No pulmonary edema or focal airspace consolidation. Mild linear scarring versus atelectasis right middle lobe. No sizable pleural effusion. No pneumothorax detected. MEDIASTINUM AND CARDIOVASCULAR STRUCTURES: Heart size within normal limits. Mediastinal contours unremarkable. BONES AND SOFT TISSUES: No acute findings. RAD/Chest PA and Lateral IMPRESSION: No radiographic evidence of acute cardiopulmonary disease. Electronically Signed: Roberth Gonzalez MD at 22:30 EDT ,
[2023-05-09 22:12] LABS: Absolute Lymphocyte Count 3.18 X10^3/uL (0.83-4.51); Absolute Neutrophil Count 6.7 X10^3/uL (2.0-7.7); Basophil# 0.05 X10^3/uL; Basophil% 0.5 % (0-1); Eosinophil# 0.08 X10^3/uL; Eosinophils% 0.7 % (0-5); Hematocrit 42.2 % (37-47); Hemoglobin 13.7 g/dL (12.0-15.0); Lymphocyte # 3.18 X10^3/ul (0.83-4.51); Lymphocyte % 28.9 % (19-41); Mean Corp Hgb Conc 32.5 g/dL (32-36); Mean Corpuscular Hgb 30.9 pg (27.0-32.0); Mean Platelet Vol. 9.8 fl (6.2-12.0); Monocyte# 0.95 X10^3/uL; Monocyte% 8.6 % (0-10); NRBC Flagged by Analyzer 0 % (0-5); Neutrophil # 6.73 X10^3/uL (2.7-7.7); Platelet Count 215 K/mm3 (150-450); RBC Distribution Width SD 45.1 fl (35.1-43.9); Red Blood Count 4.44 M/mm3 (4.2-5.4)
[2023-05-09 22:24] LABS: Anion Gap 3 (5-15); BUN 19 mg/dL (7-18); BUN/Creat Ratio 20.2 RATIO (10-20); Calcium,Total 9.5 mg/dL (8.5-10.1); Chloride 108 mmol/L (98-107); Creatinine, Serum 0.94 mg/dL (0.55-1.02); EST Glomerular Filtration Rate 64 mL/min (>60); Est Glom Filt Rate - Afr Amer 78 mL/min (>60); Estimated Creatinine Clearance 57.27 ml/min; Glucose 111 mg/dL (74-106); Potassium 3.8 mmol/L (3.5-5.1); Sodium Level 143 mmol/L (136-145)
[2023-05-09 23:00] LABS: Mucous, Urine 0 SEEN /hpf (<or=2+); Red Blood Cells-Urine 0 SEEN /hpf (0-5)
--- NOTE | 2023-05-09 23:00 | RAD_ITS ---
EXAM: XR RIGHT FOOT COMPLETE, 3 OR MORE VIEWS CLINICAL INDICATION: injury TECHNIQUE: Frontal, lateral and oblique views of the right foot. COMPARISON: No relevant prior studies available. FINDINGS: BONES/JOINTS: Old healed fracture involving the right second proximal phalanx. Preservation of the joint space. No acute or healing fracture or malalignment. No unusual lytic or sclerotic lesions of bone. SOFT TISSUES: Soft tissue swelling along the lateral aspect of the forefoot centered at the level of the there metatarsophalangeal joint. No soft tissue gas. No radiopaque foreign body. RAD/Foot min 3 Views IMPRESSION: No acute or healing fracture or malalignment. Soft swelling at the lateral forefoot. Electronically Signed: Maciel Fulton MD at 23:38 EDT ,
[2023-05-09 23:29] LABS: Color, Urine Yellow (Yellow); Glucose, Dipstick Normal (Normal); Ketone-Dipstick Negative (Negative); Leukocyte Esterase-Dipstick Negative /ul (Negative); Nitrite-Dipstick Negative (Negative); Occult Blood-Urine 10 /ul (Negative); Protein-Dipstick 15 mg/dl (Negative); Specific Gravity, Urine 1.025 (1.002-1.030); Urine Bilirubin Dipstick Negative (Negative); Urine Clarity Clear (Clear); Urine Urobilinogen Normal (Normal)
[2023-05-09 23:32] VITALS: BP 144/87; PULSE 73; RESP 16; O2SAT 95
[2023-05-09 23:39] LABS: Amorphous Sediment 3+; Bacteria 2+ /hpf (None Seen); Squamous Epithelial Cells - UA 5-10 SEEN /hpf (5-10); White Blood Cells 0-5 SEEN /hpf (0-5)
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
[2023-05-09 23:59] VITALS: BP 144/87; PULSE 84; RESP 16; O2SAT 97
== END 2023-05-10 02:10 | disposition home or self-care (01) ==
PROVIDERS: Emergency Provider Emergency Medicine; PCP Physician Assistant; Visit Provider Emergency Medicine
DX: S20.20XA Contusion of thorax, unspecified, initial encounter (principal); G80.9 Cerebral palsy, unspecified; F17.210 Nicotine dependence, cigarettes, uncomplicated; R53.1 Weakness; Z86.73 Personal history of transient ischemic attack (TIA), and cerebral infarction without residual deficits; W06.XXXA Fall from bed, initial encounter
CPT/HCPCS: 71046; 73630; 80048; 81001; 85025; 87086; 87088; 99284; A4216

== ENCOUNTER 2023-08-22 14:24 | Inpatient (IN) | payer MEDICAID, SELFPAY ==
[2023-08-22 14:26] VITALS: BP 173/87; PULSE 68; RESP 18; TEMP 36.3; O2SAT 99
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
--- NOTE | 2023-08-22 15:09 | EKG12_ITS ---
Test Reason : Blood Pressure : / mmHG Vent. Rate : 064 BPM Atrial Rate : 064 BPM P-R Int : 150 ms QRS Dur : 120 ms QT Int : 432 ms P-R-T Axes : 041 -03 059 degrees QTc Int : 445 ms Normal sinus rhythm Incomplete left bundle branch block Borderline ECG Confirmed by JOYCE ALEXANDER, DONNA ([id number]), editor managing newspaper EUGENIA SAENZ ([id number]) on 08/26/2023 2:31:35 PM Referred By: Confirmed By:DONNA COOK MD
--- NOTE | 2023-08-22 15:09 | CT_ITS ---
INDICATION: Weakness EXAMINATION: CT BRAIN - CT Head or Brain W/O Contrast Injection TECHNIQUE: Multiple axial images were obtained of the head without intravenous contrast. A radiation dose optimization technique was used for this scan. IV Contrast dosage and agent: None. RADIATION DOSAGE (If Supplied By Facility): CTDIvol = ( 44.99 ) mGy, DLP = ( 779.24 ) mGycm COMPARISON: Prior study dated: 09/03/2022 FINDINGS: BRAIN PARENCHYMA: No intra- or extra-axial hemorrhage. No evidence of acute infarct. No intracranial mass or mass effect. There is preservation of the desai/white matter interface. Posterior fossa structures are unremarkable. Patchy periventricular and deep white matter hypoattenuation is consistent with mild small vessel ischemic change. CSF SPACES: Proportional prominence of the ventricles and sulcal spaces is consistent with mild cerebral volume loss. No hydrocephalus. Basal cisterns are patent. CALVARIUM, SKULL BASE, PARANASAL SINUSES AND MASTOID AIR CELLS: Moderate opacification of the left maxillary sinus. The mastoid air cells and visualized paranasal sinuses are otherwise well aerated. The calvarium is intact. No discrete lytic or blastic abnormalities. ORBITS: Both globes, extraocular muscles, optic nerves and retrobulbar fat appear unremarkable. CT/Brain/Head without Contrast IMPRESSION: No acute intracranial finding. Chronic volume loss with small vessel ischemic change. Electronically Signed: Scott Corado MD at 16:49 EDT ,
--- NOTE | 2023-08-22 15:17 | RAD_ITS ---
STUDY: X-RAY CHEST REASON FOR EXAM: Female, 58 years old. Weakness. TECHNIQUE: Single frontal view of the chest. COMPARISON: Chest dated May 09, 2023. FINDINGS: The lungs are clear and expanded. There is no demonstrated pleural abnormality. Normal size heart. Normal mediastinum and amber. Normal visualized pulmonary arteries. Normal visualized aortic arch and descending thoracic aorta. Normal visualized thoracic spine. Normal visualized ribs, clavicles, and shoulders. No abnormality of the visualized soft tissue structures of the upper abdomen. RAD/Chest 1 View (Portable) IMPRESSION: No interval change and no acute or active cardiopulmonary disease. Electronically Signed: Sergio Bates MD at 15:32 EDT ,
[2023-08-22 15:41] LABS: Mucous, Urine 0 SEEN /hpf (<or=2+)
[2023-08-22 15:45] LABS: Absolute Lymphocyte Count 2.69 X10^3/uL (0.83-4.51); Absolute Neutrophil Count 8.8 X10^3/uL (2.0-7.7); Basophil# 0.05 X10^3/uL; Basophil% 0.4 % (0-1); Color, Urine Yellow (Yellow); Eosinophil# 0.06 X10^3/uL; Eosinophils% 0.5 % (0-5); Glucose, Dipstick Normal (Normal); Hematocrit 44.5 % (37-47); Hemoglobin 14.2 g/dL (12.0-15.0); Ketone-Dipstick 5 mg/dl (Negative); Leukocyte Esterase-Dipstick 500 /ul (Negative); Lymphocyte # 2.69 X10^3/ul (0.83-4.51); Lymphocyte % 21.5 % (19-41); Mean Corp Hgb Conc 31.9 g/dL (32-36); Mean Corpuscular Hgb 31.1 pg (27.0-32.0); Mean Corpuscular Volume 97.4 fL (81-99); Mean Platelet Vol. 10.2 fl (6.2-12.0); Monocyte# 0.86 X10^3/uL; Monocyte% 6.9 % (0-10); NRBC Flagged by Analyzer 0 % (0-5); Neutrophil # 8.83 X10^3/uL (2.7-7.7); Neutrophil % 70.3 % (47-70); Nitrite-Dipstick Negative (Negative); Occult Blood-Urine 10 /ul (Negative); Platelet Count 248 K/mm3 (150-450); Protein-Dipstick 30 mg/dl (Negative); RBC Distribution Width CV 12.7 % (11.6-14.6); Red Blood Count 4.57 M/mm3 (4.2-5.4); Urine Bilirubin Dipstick Negative (Negative); Urine Clarity Cloudy (Clear); Urine Urobilinogen Normal (Normal); White Blood Count 12.5 K/mm3 (4.4-11.0)
[2023-08-22 16:00] LABS: Anion Gap 5 (5-15); BUN 20 mg/dL (7-18); BUN/Creat Ratio 26.7 RATIO (10-20); Chloride 105 mmol/L (98-107); Creatinine, Serum 0.75 mg/dL (0.55-1.02); EST Glomerular Filtration Rate 84 mL/min (>60); Est Glom Filt Rate - Afr Amer 101 mL/min (>60); Glucose 100 mg/dL (74-106); Lactic Acid 1.3 mmol/L (0.4-1.9); Potassium 4.3 mmol/L (3.5-5.1); Sodium Level 139 mmol/L (136-145); Troponin-I HS 7 pg/mL (3.0-54.0)
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
[2023-08-22 16:28] LABS: Amorphous Sediment 1+ URATE; Bacteria RARE /hpf (None Seen); Red Blood Cells-Urine 0-5 SEEN /hpf (0-5); Squamous Epithelial Cells - UA 0-5 SEEN /hpf (5-10); White Blood Cells >100 SEEN /hpf (0-5)
[2023-08-22 16:41] VITALS: PULSE 61; RESP 20
--- NOTE | 2023-08-22 16:48 | NURSING ---
MED SURG MOSTELLER DEBILITY, UTI
--- NOTE | 2023-08-22 17:01 | CM.ED ---
Social Work SW received a phone call from [facility] of APS regarding patient. Pt sent to ED due to being unable to care for herself and her mother is in her 80's and has been trying to provide care. Irving reports patient has direction home services but is in need of a nursing facility. Pt has reportedly had many hospitalizations in the last month at other facilities and has had general decline. SW introduced self and role to patient. SW discussed placement with patient who is requesting placement. Pt reports she would like to go to [facility] due to facility being close to home. Pt declined SNF list at this time. Pt will likely need admitted for level of care statusing due to having straight Medicaid. Plan: SW to follow for needs and referral to [facility]. APS/[facility] home to be notified. Deborah Sanford PICK UP OPERATOR, AUTOMATIC DRILLING MACHINE OPERATOR
[2023-08-22 17:07] VITALS: BP 147/96; PULSE 59; RESP 17; TEMP 36.6; O2SAT 97
[2023-08-22] MEDS: Ceftriaxone 1 GM/50 ML BAG IV (17:42)
[2023-08-22 18:06] VITALS: BP 136/84; PULSE 62; RESP 24; TEMP 37.1; O2SAT 99
[2023-08-22 18:10] VITALS: BMI 36.4
[2023-08-22 18:19] VITALS: BMI 36.4
[2023-08-22 21:00] VITALS: BP 137/82; PULSE 62; RESP 16; TEMP 36.6; O2SAT 97
[2023-08-22] MEDS: KCL 20MEQ in D5.45NS 20 MEQ/1,000 ML IV.SOLN. 100 MEQ IV (21:12)
[2023-08-22] MEDS: 0.9% Saline Lock 10 ML Syringe IV (21:12)
[2023-08-23 02:32] VITALS: BP 132/75; PULSE 70; RESP 16; TEMP 36.6; O2SAT 98
[2023-08-23 07:02] LABS: Hemoglobin 13.2 g/dL (12.0-15.0); Mean Corp Hgb Conc 31.4 g/dL (32-36); Mean Corpuscular Hgb 30.5 pg (27.0-32.0); Mean Platelet Vol. 10.6 fl (6.2-12.0); Platelet Count 215 K/mm3 (150-450); RBC Distribution Width CV 12.9 % (11.6-14.6); RBC Distribution Width SD 45.9 fl (35.1-43.9); Red Blood Count 4.33 M/mm3 (4.2-5.4); White Blood Count 9.8 K/mm3 (4.4-11.0)
[2023-08-23 07:24] LABS: Anion Gap 4 (5-15); BUN 16 mg/dL (7-18); BUN/Creat Ratio 22.8 RATIO (10-20); Calcium,Total 8.8 mg/dL (8.5-10.1); Chloride 108 mmol/L (98-107); EST Glomerular Filtration Rate 91 mL/min (>60); Est Glom Filt Rate - Afr Amer 110 mL/min (>60); Glucose 117 mg/dL (74-106); Potassium 3.8 mmol/L (3.5-5.1); Sodium Level 140 mmol/L (136-145)
[2023-08-23] MEDS: KCL 20MEQ in D5.45NS 20 MEQ/1,000 ML IV.SOLN. 100 MEQ IV ×2 (08:12→18:04)
[2023-08-23 08:50] VITALS: BP 124/85; PULSE 87; RESP 18; TEMP 36.6; O2SAT 98
[2023-08-23 10:17] VITALS: O2SAT 97
[2023-08-23] MEDS: Influenza Virus Vac Quad 23-24 60 MCG/0.5 ML SYRINGE IM (11:10)
[2023-08-23] MEDS: Enoxaparin 40 MG/0.4 ML Syringe SC (11:10)
--- NOTE | 2023-08-23 11:14 | CASEMGMT ---
Social Work SW contacted [facility] to inquire about patient's current services. Per staff, patient is active with [facility] with CM Bijal Byrne ([phone]) and receives home delivered meals from [employer] (app). Patient recently had assessment for [employer] services with the plan to transition from [facility] to [facility] program. Patient's assigned CM is Heather Casanova ([phone]). staff noted in patient's chart patient is currently admitted to [facility] with plans for therapy to evaluate for possible SNF placement. SW will continue to follow along to assist with D/C planning and will provide with update regarding d/c plan. Plan: YOSEPH Javier REVIVAL CLERK, TOYIN
--- NOTE | 2023-08-23 15:13 | CASEMGMT ---
Social Work SW met with patient and introduced self and role as [facility] SW. Patient seated in chair and agreeable to speak with SW. SW engaged patient in conversation regarding discharge plan and recommendation for SNF. Patient agreeable to SNF and reports preference is [facility]. Patient unsure of second choice but plans to work with [facility] for fpc placement plans. SW reviewed referral process and inquired about transport needs at d/c. Patient states wheelchair van will be needed. D/C assistant director of residence life updated. Plan: referral pending at [facility], TOYIN
--- NOTE | 2023-08-23 15:16 | CASEMGMT ---
Discharge Planning Referral sent [facility] via [facility]. Citlali Turner, Discharge Planning Asst.
--- NOTE | 2023-08-23 15:53 | PN.HOSP_ITS ---
Reason for Visit Reason for Visit: Diagnoses Weakness (08/22/23) Subjective Subjective Seen and examined today, she has been n.p.o. today due to concerns of swallowing difficulties. Patient was seen by speech therapy and they recommended a mechan ical soft diet with thin liquids and with supervision. We are awaiting approval for the patient to go to a halfway facility for inpatient rehab services. Objective Data Objective Data Vital Signs: Vital Signs Temp Pulse Resp BP Pulse Ox O2 Del Method 97.8 F 87 18 124/85 H 97 Room Air 08/23/23 08:50 08/23/23 08:50 08/23/23 08:50 08/23/23 08:50 08/23/23 10:17 08/23/23 10:17 Oxygen Delivery Method Room Air Weight: 99.3 kg Body Mass Index (BMI) 36.4 Intake & Output: Intake and Output for Last 24 Hours 08/21/23 08/22/23 08/23/23 23:59 23:59 23:59 Intake Total 50 / 50 1000 / 1000 Output Total 1350 / 1350 Balance 50 / -550 -350 / -350 Lab / Micro Data 08/23/23 05:30 08/23/23 05:30 Labs: Laboratory Results - last 24 hr 08/22/23 15:30: Sodium 139, Potassium 4.3, Chloride 105, Carbon Dioxide 29.0, Anion Gap 5, BUN 20 H, Creatinine 0.75, Est GFR (MDRD) Af Amer 101, Est GFR (MDRD) Non-Af 84, BUN/Creatinine Ratio 26.7 H, Glucose 100, Lactic Acid 1.3, Calcium 9.0, Troponin I High Sens 7, Urine Color Yellow, Urine Clarity Cloudy, Urine pH 6.0, Ur Specific [place] 1.020, Urine Protein 30 H, Urine Glucose (UA) Normal, Urine Ketones 5 H, Urine Occult Blood 10 H, Urine Nitrite Negative, Urine Bilirubin Negative, Urine Urobilinogen Normal, Ur Leukocyte Esterase 500 H , Urine RBC 0-5 SEEN, Urine WBC >100 SEEN, Ur Squamous Epith Cells 0-5 SEEN, Amorphous Sediment 1+ URATE, Urine Bacteria RARE, Urine Mucus 0 SEEN 08/23/23 05:30: WBC 9.8, RBC 4.33, Hgb 13.2, Hct 42.0, MCV 97.0, MCH 30.5, MCHC 31.4 L, RDW Std Deviation 45.9 H, RDW Coeff of Mary Ann 12.9, Plt Count 215, MPV 10.6, Sodium 140, Potassium 3.8, Chloride 108 H, Carbon Dioxide 28.0, Anion Gap 4 L, BUN 16, Creatinine 0.70, Estim Creat Clear Calc 76.90, Est GFR (MDRD) Af Amer 110, Est GFR (MDRD) Non-Af 91, BUN/Creatinine Ratio 22.8 H, Glucose 117 H, Calcium 8.8 Micro: Microbiology 08/22/23 15:30 Urine, Clean Catch Urine Culture - Preliminary Presumptive E. coli Radiography Diagnostic Testing: Radiology Impression Brain CT 08/22/23 15:09 IMPRESSION: No acute intracranial finding. Chronic volume loss with small vessel ischemic change. Electronically Signed: Scott Corado MD at 16:49 EDT Reading Location ID and State: [address] [place] [address] Tel , Service support , Physical Exam Const alert, oriented x3 and no apparent distress Constitutional Narrative: Patient has evidence of mild cognitive impairment General Appearance: cooperative, well kempt and well developed Orientation / Consciousness: awake, oriented to person, oriented to place and oriented to time HEENT normocephalic, head/scalp atraumatic and moist oral mucous membranes Eyes PERRL, EOMs intact bilaterally and conjunctivae normal Neck supple, no JVD, thyroid normal and no carotid bruits General: trachea midline Resp normal respiratory effort, no retractions, no use of accessory muscles and clear to auscultation bilaterally Auscultation: Negative for rales, rhonchi or wheezes Cardio regular rate, regular rhythm, S1 normal heart sound, S2 normal heart sound, no murmurs, no rub and no gallops GI normal to inspection, nondistended, normoactive bowel sounds, soft to palpation, non-tender and non-distended Extremity no clubbing, cyanosis or edema Skin no rashes or lesions noted General Skin Exam: no breakdown Neuro CN's II-XII intact bilaterally, moves all extremities, no focal motor deficits and no sensory deficits noted Sensorium / Orientation: awake, alert, oriented to person and oriented to place Speech: speech normal Psych Psych Narrative: Patient has mild cognitive impairment noted Assessment & Plan Assessment/Plan (1) Debility: PLAN: Plan 1. Acute on chronic debility-patient is being seen by PT and OT, patient will need placement in a halfway facility for ongoing care at least temporari ly. #2 mild dysphagia-Per speech, they have recommended a mechanical soft diet with thin liquids with distant supervision, speech will continue to participate in her care #3 cerebral palsy-complicates care, medical course, recovery, and prognosis #4 hypothyroidism-patient is on methimazole daily, thyroid will be monitored through lab as needed #5 chronic depression-patient is currently on Cymbalta, patient will be monitored for any necessary adjustments in her dosage #6 essential hypertension-blood pressure will be monitored, patient will remain on her medications Total clinical time spent by myself addressing the patient's medical issues, reviewing all her data, and collaborating with patient's care team: 35 minutes Charges/Coding Visit Charges Inpatient E&M: 53251 Subs Hosp L2
[2023-08-23 16:17] VITALS: BP 120/77; PULSE 67; RESP 18; TEMP 36.3; O2SAT 98
[2023-08-23 21:43] VITALS: BP 147/84; PULSE 72; RESP 18; TEMP 36.8; O2SAT 100
[2023-08-23] MEDS: Atorvastatin Calcium 20 MG Tablet PO (21:48)
[2023-08-23] MEDS: cycloBENZAPRine HCl 10 MG Tablet PO (21:48)
[2023-08-23] MEDS: Propranolol 40 MG Tablet PO (21:48)
[2023-08-24] MEDS: MELATONIN 3 MG TABLET PO (00:28)
[2023-08-24] MEDS: KCL 20MEQ in D5.45NS 20 MEQ/1,000 ML IV.SOLN. 100 MEQ IV ×2 (05:32→15:14)
[2023-08-24 05:50] VITALS: BP 135/82; PULSE 65; RESP 18; TEMP 36.1; O2SAT 97
[2023-08-24 07:11] VITALS: O2SAT 94
[2023-08-24 09:18] VITALS: BP 145/91; PULSE 65; RESP 18; TEMP 36.6; O2SAT 100
[2023-08-24] MEDS: Enoxaparin 40 MG/0.4 ML Syringe SC (09:22)
[2023-08-24] MEDS: Propranolol 40 MG Tablet PO (09:22)
[2023-08-24] MEDS: DULoxetine Hcl 30 MG Capsule 90 MG PO (09:22)
[2023-08-24] MEDS: methIMAzole 5 MG TABLET PO (09:22)
--- NOTE | 2023-08-24 14:06 | CASEMGMT ---
Social Work [facility] is a non smoking facility. Pt updated and states she does not want to go to [place] as she would want to smoke. provided pt with a list of facilities in the area that allow smoking. Pt choosing to go to [facility]. Referral to be sent to [facility]. Plan: [facility], pending acceptance and Level of Care JES Enrique
[2023-08-24 14:21] VITALS: BP 120/78; PULSE 62; RESP 18; TEMP 36.6; O2SAT 100
--- NOTE | 2023-08-24 14:27 | CASEMGMT ---
Discharge Planning Referral sent to [facility] via [facility]. Citlali Turner, Discharge Planning Asst.
--- NOTE | 2023-08-24 14:52 | CASEMGMT ---
Discharge Planning Patient has been accepted by [facility]. SW updated. Citlali Turner, Discharge Planning Asst.
--- NOTE | 2023-08-24 15:32 | TREXTCAR_ITS ---
Diet Diet Order/Speech Therapy: 08/23/23 15:54 Diet: Regular - General Food consistency:: Mechanical (Minced/Moist) Liquid Consistency:: Regular/Thin Is pt able to select menu?: Yes Therapies Weight Bearing: Full weight bearing Physical Therapy: Eval and Treat Occupational Therapy: Eval and Treat Speech Therapy: Eval and Treat Problem/Diagnosis (1) Debility: Status: Acute Code(s): R53.81 - Other malaise Plan 1. Acute on chronic debility-patient is being seen by PT and OT, patient will need placement in a shelter facility for ongoing care at least temporarily. #2 mild dysphagia-Per speech, they have recommended a mechanical soft diet with thin liquids with distant supervision, speech will continue to participate in her care #3 cerebral palsy-complicates care, medical course, recovery, and prognosis #4 hypothyroidism-patient is on methimazole daily, thyroid will be monitored through lab as needed #5 chronic depression-patient is currently on Cymbalta, patient will be monitored for any necessary adjustments in her dosage #6 essential hypertension-blood pressure will be monitored, patient will remain on her medications Total clinical time spent by myself addressing the patient's medical issues, reviewing all her data, and collaborating with patient's care team: 35 minutes Allergies/Procedures Done in Hospital Allergies sulfamethoxazole [From Bactrim] Allergy (Unknown, Verified 08/22/23 14:26) Unknown trimethoprim [From Bactrim] Allergy (Unknown, Verified 08/22/23 14:26) Unknown shrimp Adverse Reaction (Verified 08/22/23 14:26) Nausea Procedures: None Type of Care/Length of Stay Estimated LOS: Convalescent Care Less Than 30 days Type of Care Needed: Skilled Rehab Potential: Good Prognosis: Good Additional Orders/Day of Discharge H&P will serve as current which was dated: 08/22/23 Day of Discharge: 08/24/23 Dietary and Speech Recommendations Dietitian Recommendations/Changes: ADAT to Regular diet with texture/consistency per CUSTOMER SERVICE ATTENDANT to optimize oral intakes. Discharge Plan Admission Admit Date/Time: 08/22/23 16:29 Primary Reason for Your Visit: debility Attending Provider: Roberth Odom Primary Care Provider: Drew Villar Consulting Providers: Arnie Mesa Discharge Orders/Prescriptions Prescriptions: New acetaminophen 325 mg Tablet 650 mg PO Q6H PRN PRN (Reason: Pain 1-10 Or Fever>100.7) Qty: 0 0RF Continued cholecalciferol (vitamin D3) 25 mcg (1,000 unit) tablet 1,000 unit PO DAILY Qty: 90 3RF buvigutg-lyss-vro-FA-lutein 18-0.4-250 mg-mg-mcg tablet 1 tab PO DAILY methimazole 5 mg tablet 5 mg PO DAILY (DME) blood pressure test kit-wrist [Blood Pressure Unit-Wrist] Kit See Rx Instructions .ROUTE .MEDSUPPLY Qty: 1 0RF Rx Instructions: As directed for HTN (DME) rollator large wheels Qty: 1 0RF Rx Instructions: As directed (DME) disability placard See Rx Instructions .ROUTE .MEDSUPPLY Qty: 1 0RF Rx Instructions: As directed, Length of time: 5 years (DME) Handicap Placard See Rx Instructions .ROUTE .MEDSUPPLY Qty: 1 0RF Rx Instructions: As directed, length of time 3 years (DME) Stand assist with sling lift See Rx Instructions .Route .MEDSUPPLY Qty: 1 0RF Rx Instructions: As directed propranolol 40 mg tablet 40 mg PO BID Qty: 180 1RF simvastatin 40 mg tablet 40 mg PO QHS Qty: 90 1RF Rx Instructions: TAKE 1 TABLET BY MOUTH DAILY AT BEDTIME cyclobenzaprine 10 mg tablet See Rx Instructions .ROUTE .COMPLEX Qty: 60 0RF Dose Instruction: TAKE 1 TABLET BY MOUTH DAILY AT BEDTIME Rx Instructions: TAKE 1 TABLET BY MOUTH DAILY AT BEDTIME duloxetine 30 mg capsule,delayed release(DR/EC) See Rx Instructions .ROUTE .COMPLEX Qty: 90 0RF Dose Instruction: TAKE 1 CAPSULE BY MOUTH ONCE DAILY *TOTAL DOSE 90MG* Rx Instructions: TAKE 1 CAPSULE BY MOUTH ONCE DAILY *TOTAL DOSE 90MG* Centrum Silver Women 8 mg iron-400 mcg-50 mcg tablet 1 tab PO DAILY Qty: 90 1RF Changed duloxetine 60 mg capsule,delayed release(DR/EC) See Rx Instructions .ROUTE .COMPLEX Qty: 90 0RF Dose Instruction: TAKE 1 CAPSULE BY MOUTH ONCE DAILY *TOTAL DOSE 90MG* Rx Instructions: TAKE 1 CAPSULE BY MOUTH ONCE DAILY with 30 mg duloxetine to total 90 mg daily Referrals / Follow Up: Drew Villar MD [Primary Care Provider] - Disposition Disposition (needs filled in before D/C Order can be placed): Long-Term Facility
--- NOTE | 2023-08-24 15:40 | PCM.DC.SUM ---
Providers Date of Admission: 08/22/23 Date of Discharge: 08/24/23 Primary Care Physician: Dr. Drew Villar MD Reason For Visit: GENERALIZED WEAKNESS Diagnosis Discharge Diagnosis (1) Debility: Status: Acute Code(s): R53.81 - Other malaise Plan 1. Acute on chronic debility-patient is being seen by PT and OT, patient will need placement in a snf facility for ongoing care at least temporarily. #2 mild dysphagia-Per speech, they have recommended a mechanical soft diet with thin liquids with distant supervision, speech will continue to participate in her care #3 cerebral palsy-complicates care, medical course, recovery, and prognosis #4 hypothyroidism-patient is on methimazole daily, thyroid will be monitored through lab as needed #5 chronic depression-patient is currently on Cymbalta, patient will be monitored for any necessary adjustments in her dosage #6 essential hypertension-blood pressure will be monitored, patient will remain on her medications Total clinical time spent by myself addressing the patient's medical issues, reviewing all her data, and collaborating with patient's care team: 35 minutes Medications at Discharge Home Medications blood pressure test kit-wrist (Blood Pressure Unit-Wrist kit) #1 ea 07/02/20 rollator #1 ea 04/06/21 disability placard #1 ea 12/23/21 Handicap Placard #1 ea 12/28/21 cholecalciferol (vitamin D3) 25 mcg (1,000 unit) tablet 1,000 unit PO DAILY #90 tabs 10/25/22 Stand assist with sling lift #1 ea 03/04/23 propranolol 40 mg tablet 40 mg PO BID #180 tabs 04/29/23 simvastatin 40 mg tablet 40 mg PO QHS #90 tabs 04/29/23 cyclobenzaprine 10 mg tablet See Rx Instructions .Route .COMPLEX #60 tabs 07/29/23 duloxetine 30 mg capsule,delayed release See Rx Instructions .Route .COMPLEX #90 caps 07/29/23 methimazole 5 mg tablet 5 mg PO DAILY 08/22/23 oenmnfzi-medg-lhh-FA-lutein 18 mg-0.4 mg-250 mcg tablet 1 tab PO DAILY 08/22/23 raltmxkq-mpmk-xyiy 8 mg-folic 400 mcg-K 50 mcg-lutein 300 mcg tablet (Centrum Silver Women) 1 tab PO DAILY #90 tabs 08/23/23 acetaminophen 325 mg tablet 650 mg (2 x 325 mg) PO Q6H PRN PRN Pain 1-10 Or Fever>100.7 #0 tabs 08/24/23 duloxetine 60 mg capsule,delayed release See Rx Instructions .Route .COMPLEX #90 caps 08/24/23 Hospital Course Operations None Procedures None Summary of Care Provided Minutes Spent on Discharge: 32 Hospital Course: This 58-year-old white female was seen in the emergency room at [facility] with a chief complaint of generalized weakness and debility, she has a history of cerebral palsy and is minimally mobile at home, she lives with her family. Labs performed in the emergency room showed a white blood cell count to be 12.5, lactic acid was normal, troponin was normal, chest x-ray showed no acute disease, CT of the brain without contrast showed no acute findings. Patient was admitted to [place] [address] for generalized weakness on a backdrop of cerebral palsy and chronic debility, patient failed her bedside swallow screen on admission and she was seen by speech therapy, she was also seen by PT and OT. A snf facility was confirmed for the patient to be discharged to, her insurance approved this. On 08/24/2023, patient was seen and examined:alert, oriented x3 and no apparent distress Constitutional Narrative: Patient has evidence of mild cognitive impairment General Appearance: cooperative, well kempt and well developed Orientation / Consciousness: awake, oriented to person, oriented to place and oriented to time HEENT normocephalic, head/scalp atraumatic and moist oral mucous membranes Eyes PERRL, EOMs intact bilaterally and conjunctivae normal Neck supple, no JVD, thyroid normal and no carotid bruits General: trachea midline Resp normal respiratory effort, no retractions, no use of accessory muscles and clear to auscultation bilaterally Auscultation: Negative for rales, rhonchi or wheezes Cardio regular rate, regular rhythm, S1 normal heart sound, S2 normal heart sound, no murmurs, no rub and no gallops GI normal to inspection, nondistended, normoactive bowel sounds, soft to palpation, non-tender and non-distended Extremity no clubbing, cyanosis or edema Skin no rashes or lesions noted General Skin Exam: no breakdown Neuro CN's II-XII intact bilaterally, moves all extremities, no focal motor deficits and no sensory deficits noted Sensorium / Orientation: awake, alert, oriented to person and oriented to place Speech: speech normal Psych Psych Narrative: Patient has mild cognitive impairment noted Patient was discharged to an extended care facility for short-term rehab services on 08/24/2023 in stable condition Weight / BMI Weight Weight: 99.3 kg Body Mass Index (BMI) 36.4 ABG / Lab / Microbiology Data 08/23/23 05:30 08/23/23 05:30 Microbiology: Microbiology 08/22/23 15:30 Urine, Clean Catch Urine Culture - Final Presumptive E. coli Meaningful Use Info Meaningful Use Diagnoses (Choose all that apply): None applicable Discharge Plan Admission Admit Date/Time: 08/22/23 16:29 Primary Reason for Your Visit: debility Attending Provider: Roberth Odom Primary Care Provider: Drew Villar Consulting Providers: Arnie Mesa Discharge Orders/Prescriptions Prescriptions: New acetaminophen 325 mg Tablet 650 mg PO Q6H PRN PRN (Reason: Pain 1-10 Or Fever>100.7) Qty: 0 0RF Continued cholecalciferol (vitamin D3) 25 mcg (1,000 unit) tablet 1,000 unit PO DAILY Qty: 90 3RF sllfffai-rfoc-qsj-FA-lutein 18-0.4-250 mg-mg-mcg tablet 1 tab PO DAILY methimazole 5 mg tablet 5 mg PO DAILY (DME) blood pressure test kit-wrist [Blood Pressure Unit-Wrist] Kit See Rx Instructions .ROUTE .MEDSUPPLY Qty: 1 0RF Rx Instructions: As directed for HTN (DME) rollator large wheels Qty: 1 0RF Rx Instructions: As directed (DME) disability placard See Rx Instructions .ROUTE .MEDSUPPLY Qty: 1 0RF Rx Instructions: As directed, Length of time: 5 years (DME) Handicap Placard See Rx Instructions .ROUTE .MEDSUPPLY Qty: 1 0RF Rx Instructions: As directed, length of time 3 years (DME) Stand assist with sling lift See Rx Instructions .Route .MEDSUPPLY Qty: 1 0RF Rx Instructions: As directed propranolol 40 mg tablet 40 mg PO BID Qty: 180 1RF simvastatin 40 mg tablet 40 mg PO QHS Qty: 90 1RF Rx Instructions: TAKE 1 TABLET BY MOUTH DAILY AT BEDTIME cyclobenzaprine 10 mg tablet See Rx Instructions .ROUTE .COMPLEX Qty: 60 0RF Dose Instruction: TAKE 1 TABLET BY MOUTH DAILY AT BEDTIME Rx Instructions: TAKE 1 TABLET BY MOUTH DAILY AT BEDTIME duloxetine 30 mg capsule,delayed release(DR/EC) See Rx Instructions .ROUTE .COMPLEX Qty: 90 0RF Dose Instruction: TAKE 1 CAPSULE BY MOUTH ONCE DAILY *TOTAL DOSE 90MG* Rx Instructions: TAKE 1 CAPSULE BY MOUTH ONCE DAILY *TOTAL DOSE 90MG* Centrum Silver Women 8 mg iron-400 mcg-50 mcg tablet 1 tab PO DAILY Qty: 90 1RF Changed duloxetine 60 mg capsule,delayed release(DR/EC) See Rx Instructions .ROUTE .COMPLEX Qty: 90 0RF Dose Instruction: TAKE 1 CAPSULE BY MOUTH ONCE DAILY *TOTAL DOSE 90MG* Rx Instructions: TAKE 1 CAPSULE BY MOUTH ONCE DAILY with 30 mg duloxetine to total 90 mg daily Referrals / Follow Up: Drew Villar MD [Primary Care Provider] - Disposition Disposition (needs filled in before D/C Order can be placed): [facility] Charges/Coding Visit Charges Inpatient E&M: 10808 Disch Hosp >30min
--- NOTE | 2023-08-24 16:34 | CASEMGMT ---
Social Work [facility] is able to accept pt. Level of care submitted. Batsheva feels pt is ready for discharge today. Discharge orders sent to [facility]. Pt notified that [facility] can accept and she will be discharged today. Pt denies SW calling family stating she will notify them. [facility] is aware that LOC is pending and pt will not discharge until this is returned. Pt cannot discharge unless Level of Care is returned. will update nursing when LOC is returned and pt can discharge. JES Enrique
--- NOTE | 2023-08-24 17:07 | PCM.PN.HOSP ---
Reason for Visit Reason for Visit: Diagnoses Weakness (08/22/23) Other malaise (08/22/23) Subjective Subjective Patient was seen and examined today, I talked with speech therapy and they modified her diet to a regular diet. Objective Data Objective Data Vital Signs: Vital Signs Temp Pulse Resp BP Pulse Ox O2 Del Method 97.8 F 62 18 120/78 100 Room Air 08/24/23 14:21 08/24/23 14:21 08/24/23 14:21 08/24/23 14:21 08/24/23 14:21 08/24/23 14:21 Oxygen Delivery Method Room Air Weight: 99.3 kg Body Mass Index (BMI) 36.4 Intake & Output: Intake and Output for Last 24 Hours 08/22/23 08/23/23 08/24/23 23:59 23:59 23:59 Intake Total 50 / 50 2546.67 / 2746.67 2304.83 / 2304.83 Output Total 1650 / 1950 900 / 900 Balance 50 / -550 896.67 / 796.67 1404.83 / 1404.83 Lab / Micro Data 08/23/23 05:30 08/23/23 05:30 Micro: Microbiology 08/22/23 15:30 Urine, Clean Catch Urine Culture - Final Presumptive E. coli Physical Exam Narrative alert, oriented x3 and no apparent distress Constitutional Narrative: Patient has evidence of mild cognitive impairment General Appearance: cooperative, well kempt and well developed Orientation / Consciousness: awake, oriented to person, oriented to place and oriented to time HEENT normocephalic, head/scalp atraumatic and moist oral mucous membranes Eyes PERRL, EOMs intact bilaterally and conjunctivae normal Neck supple, no JVD, thyroid normal and no carotid bruits General: trachea midline Resp normal respiratory effort, no retractions, no use of accessory muscles and clear to auscultation bilaterally Auscultation: Negative for rales, rhonchi or wheezes Cardio regular rate, regular rhythm, S1 normal heart sound, S2 normal heart sound, no murmurs, no rub and no gallops GI normal to inspection, nondistended, normoactive bowel sounds, soft to palpation, non-tender and non-distended Extremity no clubbing, cyanosis or edema Skin no rashes or lesions noted General Skin Exam: no breakdown Neuro CN's II-XII intact bilaterally, moves all extremities, no focal motor deficits and no sensory deficits noted Sensorium / Orientation: awake, alert, oriented to person and oriented to place Speech: speech normal Psych Psych Narrative: Patient has mild cognitive impairment noted Assessment & Plan Assessment/Plan (1) Debility: PLAN: Plan 1. Acute on chronic debility-patient is being seen by PT and OT, patient will need placement in a [facility] facility for ongoing care at least temporarily. #2 mild dysphagia-Per speech, they have recommended a regular diet with liquids by straw only #3 cerebral palsy-complicates care, medical course, recovery, and prognosis #4 hypothyroidism-patient is on methimazole daily, thyroid will be monitored through lab as needed #5 chronic depression-patient is currently on Cymbalta, patient will be monitored for any necessary adjustments in her dosage #6 essential hypertension-blood pressure will be monitored, patient will remain on her medications #7 bacteriuria with E. coli-patient is asymptomatic at this time, I do not feel she has an active cystitis Total clinical time spent by myself addressing the patient's medical issues, reviewing all her data, and collaborating with patient's care team: 35 minutes Charges/Coding Visit Charges Inpatient E&M: 53392 Subs Hosp L2
--- NOTE | 2023-08-24 17:54 | CASEMGMT ---
Social Work SW received LOC for patient and provided it to unit [employer]ic liquor maker. Copy of LOC also sent to [facility] via [employer] with transportation ETA. Plan: [facility] Naida Javier MSW, [place]
--- NOTE | 2023-08-24 18:11 | NURSING ---
attempted to give nurse to nurse report to CC, staff member states they will call back to [facility] at number provided to recieve report
--- NOTE | 2023-08-24 19:03 | NURSING ---
phoned [facility] ext [phone] and to ask for Kristel to give nurse to nurse report. Put through phone tree 5 different times and still unable to connect with Kristel. Charge nurse Chiquita oakley.
--- NOTE | 2023-08-25 10:25 | CASEMGMT ---
Social Work SW faxed discharge instructions, disposition and dc date to [facility] Heather Casanova. JES Enrique
== END 2023-08-24 18:25 | DRG 861 ==
LOC: ED 16:36 → MS3 16:52
PROVIDERS: Admitting Provider Hospitalist; Emergency Provider Emergency Medicine; PCP Internal Medicine; Visit Provider Internal Medicine
DX: R53.81 Other malaise (principal); E03.9 Hypothyroidism, unspecified; G80.9 Cerebral palsy, unspecified; I10 Essential (primary) hypertension; F32.A Depression, unspecified; F17.210 Nicotine dependence, cigarettes, uncomplicated; E66.9 Obesity, unspecified; G89.29 Other chronic pain; R13.10 Dysphagia, unspecified; R82.71 Bacteriuria; B96.20 Unspecified Escherichia coli [E. coli] as the cause of diseases classified elsewhere; Z68.36 Body mass index [BMI] 36.0-36.9, adult; Z74.01 Bed confinement status; Z79.899 Other long term (current) drug therapy; Z86.73 Personal history of transient ischemic attack (TIA), and cerebral infarction without residual deficits; Z23 Encounter for immunization
CPT/HCPCS: 36415; 70450; 71045; 80048; 81001; 83605; 84484; 85025; 85027; 87086; 87088; 87186; 92526; 92610; 93005; 97162; 97166; 99285; 99406; 90686; A4216

== ENCOUNTER → 2023-08-25 | Outpatient (REF) | payer MEDICAID, SELFPAY ==
[2023-08-25 08:57] LABS: Absolute Lymphocyte Count 2.55 X10^3/uL (0.83-4.51); Absolute Neutrophil Count 4.5 X10^3/uL (2.0-7.7); Basophil# 0.04 X10^3/uL; Basophil% 0.5 % (0-1); Eosinophil# 0.13 X10^3/uL; Eosinophils% 1.6 % (0-5); Hematocrit 40.3 % (37-47); Hemoglobin 12.9 g/dL (12.0-15.0); Lymphocyte # 2.55 X10^3/ul (0.83-4.51); Lymphocyte % 32.2 % (19-41); Mean Corpuscular Hgb 31.2 pg (27.0-32.0); Mean Corpuscular Volume 97.6 fL (81-99); Mean Platelet Vol. 10.7 fl (6.2-12.0); Monocyte# 0.65 X10^3/uL; Monocyte% 8.2 % (0-10); NRBC Flagged by Analyzer 0 % (0-5); Neutrophil # 4.53 X10^3/uL (2.7-7.7); Neutrophil % 57.1 % (47-70); Platelet Count 214 K/mm3 (150-450); RBC Distribution Width CV 12.9 % (11.6-14.6); RBC Distribution Width SD 46.4 fl (35.1-43.9); Red Blood Count 4.13 M/mm3 (4.2-5.4); White Blood Count 7.9 K/mm3 (4.4-11.0)
[2023-08-25 09:19] LABS: Vitamin B12 538 pg/mL (211-911); Vitamin D,25 Hydroxy 36.7 ng/mL
[2023-08-25 09:37] LABS: Anion Gap 6 (5-15); BUN 8 mg/dL (7-18); BUN/Creat Ratio 10.2 RATIO (10-20); Calcium,Total 9.1 mg/dL (8.5-10.1); Chloride 109 mmol/L (98-107); Creatinine, Serum 0.78 mg/dL (0.55-1.02); EST Glomerular Filtration Rate 79 mL/min (>60); Est Glom Filt Rate - Afr Amer 96 mL/min (>60); Glucose 145 mg/dL (74-106); Potassium 3.6 mmol/L (3.5-5.1); Sodium Level 142 mmol/L (136-145); Thyroid Stim Hormone (TSH) 0.22 uIU/mL (0.358-3.74)
== END | disposition home or self-care (01) ==
LOC: OLS.SW 05:30
PROVIDERS: PCP Internal Medicine; Visit Provider Internal Medicine
DX: E06.0 Acute thyroiditis (principal); Z02.0 Encounter for examination for admission to educational institution
CPT/HCPCS: 36415; 80048; 82306; 82607; 83735; 84443; 85025

== ENCOUNTER → 2023-08-29 | Outpatient (REF) | payer MEDICAID, SELFPAY ==
[2023-08-29 11:34] LABS: Hemoglobin A1c 5.4 % (3.8-5.6)
== END | disposition home or self-care (01) ==
LOC: OLS.SW 05:50
PROVIDERS: PCP Internal Medicine; Visit Provider Internal Medicine
DX: E11.9 Type 2 diabetes mellitus without complications (principal)
CPT/HCPCS: 36415; 83036

== ENCOUNTER → 2023-09-05 | Outpatient (REF) | payer MEDICAID, SELFPAY ==
[2023-09-05 08:15] LABS: Hemoglobin 11.8 g/dL (12.0-15.0); Mean Corp Hgb Conc 31.1 g/dL (32-36); Mean Corpuscular Hgb 30.3 pg (27.0-32.0); Mean Corpuscular Volume 97.7 fL (81-99); Mean Platelet Vol. 11.1 fl (6.2-12.0); Platelet Count 191 K/mm3 (150-450); RBC Distribution Width CV 13.2 % (11.6-14.6); RBC Distribution Width SD 47.5 fl (35.1-43.9); Red Blood Count 3.89 M/mm3 (4.2-5.4)
[2023-09-05 08:28] LABS: Anion Gap 5 (5-15); BUN 14 mg/dL (7-18); BUN/Creat Ratio 19.1 RATIO (10-20); Calcium,Total 8.8 mg/dL (8.5-10.1); Chloride 109 mmol/L (98-107); Creatinine, Serum 0.73 mg/dL (0.55-1.02); EST Glomerular Filtration Rate 86 mL/min (>60); Est Glom Filt Rate - Afr Amer 104 mL/min (>60); Glucose 100 mg/dL (74-106); Potassium 3.7 mmol/L (3.5-5.1); Sodium Level 143 mmol/L (136-145)
== END | disposition home or self-care (01) ==
LOC: OLS.SW 05:00
PROVIDERS: PCP Internal Medicine; Visit Provider Internal Medicine
DX: I10 Essential (primary) hypertension (principal); E78.5 Hyperlipidemia, unspecified
CPT/HCPCS: 36415; 80048; 85027

== ENCOUNTER → 2023-09-07 | Outpatient (REF) | payer MEDICAID, SELFPAY ==
[2023-09-07 08:01] LABS: Hematocrit 39.5 % (37-47); Hemoglobin 12.2 g/dL (12.0-15.0); Mean Corp Hgb Conc 30.9 g/dL (32-36); Mean Corpuscular Volume 97.1 fL (81-99); Mean Platelet Vol. 11.1 fl (6.2-12.0); Platelet Count 209 K/mm3 (150-450); RBC Distribution Width SD 46.7 fl (35.1-43.9); Red Blood Count 4.07 M/mm3 (4.2-5.4); White Blood Count 8.2 K/mm3 (4.4-11.0)
[2023-09-07 08:14] LABS: Anion Gap 4 (5-15); BUN 13 mg/dL (7-18); Chloride 110 mmol/L (98-107); Creatinine, Serum 0.68 mg/dL (0.55-1.02); EST Glomerular Filtration Rate 93 mL/min (>60); Est Glom Filt Rate - Afr Amer 112 mL/min (>60); Glucose 102 mg/dL (74-106); Potassium 3.8 mmol/L (3.5-5.1); Sodium Level 143 mmol/L (136-145)
[2023-09-09 05:54] LABS: Thyroid Stim Hormone (TSH) 0.07 uIU/mL (0.358-3.74)
== END | disposition home or self-care (01) ==
LOC: OLS.SW 05:00
PROVIDERS: PCP Internal Medicine; Visit Provider Internal Medicine
DX: E03.9 Hypothyroidism, unspecified (principal); Z79.899 Other long term (current) drug therapy
CPT/HCPCS: 36415; 80048; 84443; 85027